=== PATIENT | male | born 1995 | race Hispanic/Latino ===

== ENCOUNTER 2019-07-15 08:11 | Emergency (ER) | payer OTHER ==
[2019-07-15] MEDS ORDERED: Acetaminophen 500 MG TAB ONE (08:41)
[2019-07-15] MEDS ORDERED: Ibuprofen 800 MG TAB ONE (08:41)
--- NOTE | 2019-07-15 08:42 | RAD ---
Radiograph right hand 3 views: HISTORY: 23-year-old male status post blunt trauma to right hand. FINDINGS: No fracture, dislocation, or any other osseous abnormality. IMPRESSION: Normal.
== END 2019-07-15 08:50 | disposition home or self-care (01) ==
LOC: MADERS 08:11
DX: S60.221A Contusion of right hand, initial encounter (principal); M77.9 Enthesopathy, unspecified; W20.8XXA Other cause of strike by thrown, projected or falling object, initial encounter